=== PATIENT | female | born 1960 ===

== ENCOUNTER → 2024-08-14 09:53 | Outpatient (REF) | payer MEDICARE, OTHER, SELFPAY | LOC: RAD 09:53 | PROVIDERS: ATTENDING PHYSICIAN Internal Medicine Cardiovascular Disease; FAMILY PHYSICIAN Family Medicine | DX: I48.92 Unspecified atrial flutter (principal); G45.9 Transient cerebral ischemic attack, unspecified; E78.5 Hyperlipidemia, unspecified; I47.29 Other ventricular tachycardia; I49.3 Ventricular premature depolarization; R94.39 Abnormal result of other cardiovascular function study | CPT/HCPCS: 75574; Q9967 ==